=== PATIENT | female | born 1960 | race Caucasian/White ===

== ENCOUNTER 2016-06-01 16:49 | Inpatient (IN) | payer MEDICARE, OTHER ==
[2016-06-01 17:21] LABS: Basophils % (A) 1 %; CH 29.6; CHCM 33.3; Eosinophils # (A) 0.2 k/uL (0-0.7); Eosinophils % (A) 2 %; HDW 2.73; HGB 12.9 gm/dL (11.4-16.0); Luc # (Auto) 0.14; Luc % (Auto) 2; Lymphocytes # (A) 1.2 k/uL (1.0-4.8); Lymphocytes % (A) 16 %; MCH 28.8 pg (25.0-35.0); MCHC 32.2 g/dL (31.0-37.0); MCV 89.4 fL (80.0-100.0); Mean Platelet Volume 7.6; Monocytes # (A) 0.9 k/uL (0-1.0); Monocytes % (A) 13 %; Neutrophils # (A) 4.8 k/uL (1.3-7.7); Neutrophils % (A) 67 %; RBC 4.47 m/uL (3.80-5.40); RDW 14.3 % (11.5-15.5); WBC 7.3 k/uL (3.8-10.6); WBC (Perox) 6.69
--- NOTE | 2016-06-01 17:24 | ED ---
SOB HPI - General Chief Complaint: Shortness of Breath Stated Complaint: Diff breathing Time Seen by Provider: 06/01/16 17:00 Source: patient, EMS, RN notes reviewed Mode of arrival: EMS Limitations: no limitations - History of Present Illness Initial Comments: This is a 55-year-old female who was sent in from a senior care for evaluation for altered mental status and shortness of breath which she arrived she was awake alert oriented 4 but she was short of breath with cough and wheezing noted have a decreased pulse ox. Additionally she was noted to have some erythema and cellulitis of lower extremities veins of leg pain. MD Complaint: shortness of breath - Related Data Home Medications Medication Instructions Recorded Confirmed Albuterol Inhaler [Ventolin Hfa 2 puff INHALATION RT-Q4H PRN 06/01/16 06/01/16 Inhaler] Anti-Fungal Powder(Unknown) 1 applic TOPICAL DAILY PRN 06/01/16 06/01/16 Bisacodyl [Dulcolax] 10 mg RECTAL DAILY PRN 06/01/16 06/01/16 Clotrimazole/Betameth Cream 1 applic TOPICAL BID PRN 06/01/16 06/01/16 [Lotrisone] Cyclobenzaprine [Flexeril] 10 mg PO Q8H PRN 06/01/16 06/01/16 Divalproex ER [Depakote ER] 2,000 mg PO DAILY@1600 06/01/16 06/01/16 Ergocalciferol [Vitamin D2] 50,000 unit PO TH 06/01/16 06/01/16 Folic Acid 1 mg PO HS 06/01/16 06/01/16 Furosemide [Lasix] 40 mg PO BID@0800,1600 06/01/16 06/01/16 Gabapentin [Neurontin] 300 mg PO TID@0500,1300,2100 06/01/16 06/01/16 Levothyroxine Sodium [Synthroid] 137 mcg PO DAILY@0500 06/01/16 06/01/16 Losartan [Cozaar] 50 mg PO BID 06/01/16 06/01/16 Mag Hydrox/Al Hydrox/Simeth 10 ml PO QID PRN 06/01/16 06/01/16 [Maalox] Magnesium Hydroxide [Milk of 2,400 mg PO Q72H PRN 06/01/16 06/01/16 Magnesia] Multivitamins, Thera [Multivitamin] 1 tab PO HS 06/01/16 06/01/16 Mupirocin 2% Oint [Bactroban 2% 1 applic TOPICAL DAILY PRN 06/01/16 06/01/16 Oint] Polyethylene Glycol 3350 [Miralax] 17 gm PO DAILY@199906/01/16 06/01/16 Selsun Blue Shampoo 1 applic TOPICAL WESA 06/01/16 06/01/16 Sennosides [Senna] 8.6 mg PO BID PRN 06/01/16 06/01/16 Sennosides-Docusate Sodium 1 tab PO BID 06/01/16 06/01/16 [Senokot-S] Thiamine [Vitamin B-1] 100 mg PO HS 06/01/16 06/01/16 glipiZIDE [Glucotrol] 5 mg PO BID@0800,1600 06/01/16 06/01/16 metFORMIN HCL [Glucophage] 500 mg PO BID@0800,1600 06/01/16 06/01/16 oxyCODONE-APAP 5-325MG [Percocet 1 tab PO Q6HR PRN 06/01/16 06/01/16 5-325 mg] Allergies Allergy/AdvReac Type Severity Reaction Status Date / Time carbamazepine [From Tegretol] Allergy Unknown Verified 06/01/16 17:12 phenytoin [From Dilantin] Allergy Unknown Verified 06/01/16 17:12 sulfadiazine Allergy Unknown Verified 06/01/16 17:12 Review of Systems ROS Statement: Those systems with pertinent positive or pertinent negative responses have been documented in the HPI. ROS Other: All systems not noted in ROS Statement are negative. Past Medical History Past Medical History: Heart Failure, COPD, Diabetes Mellitus, Dialysis, GERD/ Reflux, Hypertension, Seizure Disorder, Thyroid Disorder Additional Past Medical History / Comment(s): Cellulitis, hypothyroid, History of Any Multi-Drug Resistant Organisms: Unobtainable Past Surgical History: Section Additional Past Surgical History / Comment(s): Brain Surgery Past Psychological History: Bipolar, Depression, Schizophrenia Smoking Status: Former smoker Past Alcohol Use History: Occasional Past Drug Use History: None Reported General Exam - General Exam Comments Initial Comments: This is a well-developed well-nourished awake alert oriented 3 female Limitations: no limitations General appearance: alert, in no apparent distress Head exam: Present: atraumatic, normocephalic, normal inspection Eye exam: Present: normal appearance, PERRL, EOMI. Absent: scleral icterus, conjunctival injection, periorbital swelling ENT exam: Present: normal exam, mucous membranes moist Neck exam: Present: normal inspection. Absent: tenderness, meningismus, lymphadenopathy Respiratory exam: Present: normal lung sounds bilaterally. Absent: respiratory distress, wheezes, rales, rhonchi, stridor Cardiovascular Exam: Present: regular rate, normal rhythm, normal heart sounds. Absent: systolic murmur, diastolic murmur, rubs, gallop, clicks GI/Abdominal exam: Present: soft, normal bowel sounds. Absent: distended, tenderness, guarding, rebound, rigid Extremities exam: Present: full ROM, tenderness, normal capillary refill, other (Edema to both lower extremities with stasis changes and some edema noted very minimal increased localized temperature.). Absent: pedal edema, joint swelling , calf tenderness Back exam: Present: normal inspection Neurological exam: Present: alert, oriented X3, CN II-XII intact Psychiatric exam: Present: normal affect, normal mood Skin exam: Present: warm, dry, intact, normal color. Absent: rash Course Vital Signs 06/01/16 06/01/16 16:52 17:02 Temperature 98.4 F Pulse Rate 82 Respiratory 22 20 Rate Blood Pressure 130/66 O2 Sat by Pulse 95 Oximetry - Reevaluation(s) Reevaluation #1: 06/01/16 18:15 I did discuss the findings with the patient she is a smoker she states she uses E cigarettes at this time. Medical Decision Making - Medical Decision Making I did discuss findings with the patient she'll be admitted she'll be placed on IV and nebulizer treatment. - Lab Data Result diagrams: 06/01/16 17:00 06/01/16 17:00 Lab Results 06/01/16 06/01/16 06/01/16 Range/Units 17:00 17:00 17:00 WBC 7.3 (3.8-10.6) k/uL RBC 4.47 (3.80-5.40) m/uL Hgb 12.9 (11.4-16.0) gm/dL Hct 40.0 (34.0-46.0) % MCV 89.4 (80.0-100.0) fL MCH 28.8 (25.0-35.0) pg MCHC 32.2 (31.0-37.0) g/dL RDW 14.3 (11.5-15.5) % Plt Count 253 (150-450) k/uL Neutrophils % 67 % Lymphocytes % 16 % Monocytes % 13 % Eosinophils % 2 % Basophils % 1 % Neutrophils # 4.8 (1.3-7.7) k/uL Lymphocytes # 1.2 (1.0-4.8) k/uL Monocytes # 0.9 (0-1.0) k/uL Eosinophils # 0.2 (0-0.7) k/uL Basophils # 0.0 (0-0.2) k/uL PT (9.0-12.0) sec INR (<1.1) APTT (22.0-30.0) sec D-Dimer (<0.60) mg/L FEU Sodium 138 (137-145) mmol/L Potassium 4.2 (3.5-5.1) mmol/L Chloride 93 L (98-107) mmol/L Carbon Dioxide 34 H (22-30) mmol/L Anion Gap 11 mmol/L BUN 16 (7-17) mg/dL Creatinine 0.74 (0.52-1.04) mg/dL Est GFR (MDRD) Af Amer >60 (>60 ml/min/1.73 sqM) Est GFR (MDRD) Non-Af >60 (>60 ml/min/1.73 sqM) Glucose 92 (74-99) mg/dL Calcium 9.4 (8.4-10.2) mg/dL Magnesium 1.9 (1.6-2.3) mg/dL Total Bilirubin 0.5 (0.2-1.3) mg/dL AST 24 (14-36) U/L ALT 29 (9-52) U/L Alkaline Phosphatase 53 (38-126) U/L Total Creatine Kinase 51 (30-135) U/L CK-MB (CK-2) 0.4 (0.0-2.4) ng/mL CK-MB (CK-2) Rel Index 0.8 Troponin I 0.019 (0.000-0.034) ng/mL NT-Pro-B Natriuret Pep pg/mL Total Protein 6.6 (6.3-8.2) g/dL Albumin 3.7 (3.5-5.0) g/dL Urine Color Urine Appearance (Clear) Urine pH (5.0-8.0) Ur Specific [place] (1.001-1.035) Urine Protein (Negative) Urine Glucose (UA) (Negative) Urine Ketones (Negative) Urine Blood (Negative) Urine Nitrate (Negative) Urine Bilirubin (Negative) Urine Urobilinogen (<2.0) mg/dL Ur Leukocyte Esterase (Negative) 06/01/16 06/01/16 06/01/16 Range/Units 17:00 17:00 17:25 WBC (3.8-10.6) k/uL RBC (3.80-5.40) m/uL Hgb (11.4-16.0) gm/dL Hct (34.0-46.0) % MCV (80.0-100.0) fL MCH (25.0-35.0) pg MCHC (31.0-37.0) g/dL RDW (11.5-15.5) % Plt Count (150-450) k/uL Neutrophils % % Lymphocytes % % Monocytes % % Eosinophils % % Basophils % % Neutrophils # (1.3-7.7) k/uL Lymphocytes # (1.0-4.8) k/uL Monocytes # (0-1.0) k/uL Eosinophils # (0-0.7) k/uL Basophils # (0-0.2) k/uL PT 10.5 (9.0-12.0) sec INR 1.0 (<1.1) APTT 25.8 (22.0-30.0) sec D-Dimer 0.55 (<0.60) mg/L FEU Sodium (137-145) mmol/L Potassium (3.5-5.1) mmol/L Chloride (98-107) mmol/L Carbon Dioxide (22-30) mmol/L Anion Gap mmol/L BUN (7-17) mg/dL Creatinine (0.52-1.04) mg/dL Est GFR (MDRD) Af Amer (>60 ml/min/1.73 sqM) Est GFR (MDRD) Non-Af (>60 ml/min/1.73 sqM) Glucose (74-99) mg/dL Calcium (8.4-10.2) mg/dL Magnesium (1.6-2.3) mg/dL Total Bilirubin (0.2-1.3) mg/dL AST (14-36) U/L ALT (9-52) U/L Alkaline Phosphatase (38-126) U/L Total Creatine Kinase (30-135) U/L CK-MB (CK-2) (0.0-2.4) ng/mL CK-MB (CK-2) Rel Index Troponin I (0.000-0.034) ng/mL NT-Pro-B Natriuret Pep 451 pg/mL Total Protein (6.3-8.2) g/dL Albumin (3.5-5.0) g/dL Urine Color Light Yellow Urine Appearance Clear (Clear) Urine pH 7.5 (5.0-8.0) Ur Specific [place] 1.006 (1.001-1.035) Urine Protein Negative (Negative) Urine Glucose (UA) Negative (Negative) Urine Ketones Negative (Negative) Urine Blood Negative (Negative) Urine Nitrate Negative (Negative) Urine Bilirubin Negative (Negative) Urine Urobilinogen <2.0 (<2.0) mg/dL Ur Leukocyte Esterase Negative (Negative) - EKG Data -: EKG Interpreted by Ct EKG shows normal: sinus rhythm (Sinus rhythm rate of 81. Interval 136 QRS duration 80 daily since QTC of 342/397 nonspecific T-wave configuration artifact is present.) - Radiology Data Radiology results: report reviewed (Did review the x-rays and reports patient demonstrates bilateral pneumonia.), image reviewed Disposition Clinical Impression: Pneumonia, Acute exacerbation of chronic obstructive airways disease Disposition: ADMITTED IP TO THIS HOSP Condition: Stable
[2016-06-01 17:34] LABS: ALT 29 U/L (9-52); AST 24 U/L (14-36); Alkaline Phosphatase 53 U/L (38-126); Anion Gap 11 mmol/L; Blood Urea Nitrogen 16 mg/dL (7-17); Calcium 9.4 mg/dL (8.4-10.2); Carbon Dioxide 34 mmol/L (22-30); Chloride 93 mmol/L (98-107); Glucose 92 mg/dL (74-99); Magnesium 1.9 mg/dL (1.6-2.3); Non-African American GFR(MDRD) >60 (>60 ml/min/1.73 sqM); Potassium 4.2 mmol/L (3.5-5.1); Sodium 138 mmol/L (137-145); Total Bilirubin 0.5 mg/dL (0.2-1.3); Total Protein 6.6 g/dL (6.3-8.2)
[2016-06-01 17:36] LABS: Appearance,Urine Clear (Clear); Bilirubin,Urine Negative (Negative); Glucose,Urine (UA) Negative (Negative); Ketones,Urine Negative (Negative); Leukocyte Esterase,Urine Negative (Negative); Nitrite,Urine Negative (Negative); PH, Urine 7.5 (5.0-8.0); Protein,Urine Negative (Negative); Specific Gravity,Urine 1.006 (1.001-1.035); UA Billing (MACRO vs. MICRO) CHEM; Urobilinogen,Urine <2.0 mg/dL (<2.0)
[2016-06-01 17:36] LABS: Partial Thromboplastin Time 25.8 sec (22.0-30.0); Prothrombin Time 10.5 sec (9.0-12.0)
--- NOTE | 2016-06-01 17:45 | XR ---
EXAMINATION TYPE: XR chest 2V DATE OF EXAM: 06/01/2016 5:38 PM COMPARISON: 05/05/2012 HISTORY: Short of breath TECHNIQUE: Frontal and lateral views of the chest are obtained. FINDINGS: Heart and mediastinum are within normal limits. On the lateral view there is evidence of i nfiltrate at both posterior lung bases. There is no heart failure. There are chest leads. There are n o hilar masses. IMPRESSION: There is evidence of bilateral posterior basilar pneumonia that is new compared to old e xam. Normal heart. No gross heart failure.
[2016-06-01 17:56] LABS: Creatine Kinase MB 0.4 ng/mL (0.0-2.4); Troponin I 0.019 ng/mL (0.000-0.034)
[2016-06-01] MEDS ORDERED: AZITHROMYCIN 500 MG in SODIUM CHLORIDE 0.9% 250 ML IVPB STA (18:16)
[2016-06-01] MEDS ORDERED: PNEUMONIA PROTOCOL UTILIZED 1 EACH MISC PO PRN (18:16)
[2016-06-01] MEDS ORDERED: SENNOSIDES 8.6 MG TAB PO PRN (18:18)
[2016-06-01] MEDS ORDERED: CYCLOBENZAPRINE 10 MG TAB PO PRN (18:18)
[2016-06-01] MEDS ORDERED: MUPIROCIN 2% OINT 22 GM TUBE TOPICAL PRN (18:18)
[2016-06-01] MEDS ORDERED: oxyCODONE-APAP 5-325MG 1 EACH TAB PO PRN (18:18)
[2016-06-01] MEDS ORDERED: CLOTRIMAZOLE/BETAMETH 1-0.05% CREAM 45 GM TUBE TOPICAL PRN (18:18)
[2016-06-01] MEDS ORDERED: SODIUM CHLORIDE 0.9% 1,000 ML IV SCH (18:30)
[2016-06-01] MEDS ORDERED: IPRATROPIUM-ALBUTEROL 3 ML NEB INHALATION SCH (20:00)
[2016-06-01 20:17] LABS: Glucose,Whole Blood 114 mg/dL (75-99)
[2016-06-01] MEDS ORDERED: IPRATROPIUM-ALBUTEROL 3 ML NEB INHALATION PRN (20:24)
[2016-06-01 20:25] LABS: Hemoglobin A1C 5.9 % (4.2-6.1)
[2016-06-01] MEDS ORDERED: MULTIVITAMINS, THERA 1 EACH TAB PO SCH (21:00)
[2016-06-01] MEDS ORDERED: THIAMINE 100 MG TAB PO SCH (21:00)
[2016-06-01] MEDS ORDERED: FOLIC ACID 1 MG TAB PO SCH (21:00)
[2016-06-01] MEDS: GABAPENTIN 300 MG CAP PO SCH (22:23)
[2016-06-01] MEDS: LOSARTAN 50 MG TAB PO SCH (22:28)
[2016-06-01] MEDS: INSULIN LISPRO (humaLOG) 300 UNIT/3 ML VIAL SQ SCH (22:28)
[2016-06-01] MEDS: SENNOSIDES-DOCUSATE SODIUM 1 EACH TAB PO SCH (22:29)
[2016-06-02] MEDS: methylPREDNISolone SOD SUCCI 125 MG/2 ML VIAL IV SCH ×3 (00:14→12:39)
[2016-06-02 03:49] VITALS: RESP 16
[2016-06-02] MEDS ORDERED: LEVOTHYROXINE 137 MCG TAB PO SCH (05:00)
[2016-06-02] MEDS: GABAPENTIN 300 MG CAP PO SCH (06:32)
[2016-06-02 06:36] LABS: Glucose,Whole Blood 158 mg/dL (75-99)
[2016-06-02 07:15] VITALS: BP 177/93; PULSE 84; TEMP 97.1
--- NOTE | 2016-06-02 07:41 | XR ---
EXAMINATION TYPE: XR chest 2V DATE OF EXAM: 06/02/2016 7:08 AM COMPARISON: 06/01/2016 INDICATION: Pneumonia TECHNIQUE: Frontal and lateral views of the chest are obtained. FINDINGS: The heart size is normal. The pulmonary vasculature is normal. The lungs are clear. Chin overlies the right apex IMPRESSION: 1. No acute pulmonary process.
[2016-06-02] MEDS ORDERED: glipiZIDE 5 MG TAB PO SCH (08:00)
[2016-06-02] MEDS ORDERED: metFORMIN 500 MG TAB PO SCH (08:00)
[2016-06-02] MEDS ORDERED: FUROSEMIDE 40 MG TAB PO SCH (08:00)
[2016-06-02] MEDS: LOSARTAN 50 MG TAB PO SCH (08:11)
[2016-06-02] MEDS: INSULIN LISPRO (humaLOG) 300 UNIT/3 ML VIAL SQ SCH ×2 (08:11→12:36)
[2016-06-02] MEDS: SENNOSIDES-DOCUSATE SODIUM 1 EACH TAB PO SCH (08:19)
[2016-06-02] MEDS ORDERED: AZITHROMYCIN 500 MG TAB PO SCH (09:00)
[2016-06-02] MEDS: IPRATROPIUM-ALBUTEROL 3 ML NEB INHALATION SCH ×2 (09:17→12:43)
--- NOTE | 2016-06-02 11:00 | HP ---
DATE OF ADMISSION: HISTORY AND PHYSICAL AND DISCHARGE SUMMARY Patient is a 55-year-old female who came in from custodial with complaints of altered mental status and shortness of breath. History is not very clear because of her mental status issues. Patient states she is smoking E cigarettes. Patient appears to have smoked in the past. Patient was admitted for pneumonia. Patient was complaining of cough with yellowish sputum production. Denied any fever, chills, body aches. The patient did not have any fever here. Did not have any leukocytosis. There is no chest x-ray evidence of pneumonia. Patient is morbidly obese because of which chest x-ray does look hazy. No orthopnea or PND and the patient does have wheezing on exam. Patient may have minimal wheezing on exam, although patient is saturating well upon ambulation around 90s, upon ambulation without oxygen. Patient does have minimal wheeze, which she should be okay with oral steroids. Patient may have asthma, COPD exacerbation. 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 I was told patient has altered mental status, although patient is alert and oriented x2 and as per the ER physician dictation, patient did not appear to be have any altered mental status. Anyways, patient's mental status is at her baseline. No signs or symptoms of sepsis. Urinalysis is negative. REVIEW OF SYSTEMS: CONSTITUTIONAL: No fever, no malaise, no fatigue. HEENT: No recent visual problems or hearing problems. Denied any sore throat. CARDIOVASCULAR: No chest pain, orthopnea, PND, no palpitations, no syncope. PULMONARY: As described in HPI. GASTROINTESTINAL: No diarrhea, no nausea, no vomiting, no abdominal pain. Normoactive bowel sounds. NEUROLOGICAL: As described in HPI. HEMATOLOGICAL: Denies any bleeding or petechiae. GENITOURINARY: Denies any burning micturition, frequency, or urgency. MUSCULOSKELETAL/RHEUMATOLOGICAL: Denies any joint pain, swelling, or any muscle pain. ENDOCRINE: Denies any polyuria or polydipsia. The rest of the 14 point review of systems is negative. Home medications include: 1. Albuterol. 2. Bisacodyl. 3. Clotrimazole beclomethasone. 4. Cyclobenzaprine. 5. Depakote. 6. Ergocalciferol. 7. Lasix. 8. Gabapentin. 9. Levothyroxine. 10. Losartan. 11. Magnesium oxide. 12. Multivitamin. 13. Polyethylene glycol. 14. Senna. 15. Thiamine. 16. Glipizide. 17. Metformin. 18. Oxycodone. ALLERGIES: Allergic to CARBAMAZEPINE, PHENYTOIN and SULFADIAZINE. PAST MEDICAL HISTORY: Heart failure as per documentation and patient is definitely on heart failure. medications including losartan and Lasix, but I do not know the ejection fraction. Patient is not in any heart failure exacerbation at this point of time. COPD, diabetes mellitus, gastroesophageal reflux disease, hypertension, seizure disorder, hypothyroidism. Patient had a section in the past. PSYCHOLOGICAL HISTORY: Bipolar disorder, depression, schizophrenia. SOCIAL HISTORY: Former smoker, presently smokes E cigarettes. Denied any alcohol abuse or any drug abuse. FAMILY HISTORY: Unable to obtain at this point of time. Patient has baseline mental status abnormalities since a traumatic brain injury in the past. PHYSICAL EXAMINATION: GENERAL: Morbidly obese, alert and oriented x2. HEENT: Pupils are round and equally reacting to light. EOMI. No scleral icterus. No conjunctival pallor. Normocephalic, atraumatic. No pharyngeal erythema. No thyromegaly. CARDIOVASCULAR: S1 and S2 present. No JVD. No S3. LUNG EXAMINATION: Minimal expiratory wheezing was appreciated. Fairly good air entry into bilateral lung bhatt. No crackles were appreciated. ABDOMEN: Soft, nontender, nondistended, normoactive bowel sounds. No palpable organomegaly. MUSCULOSKELETAL: No joint swelling or deformity. EXTREMITIES: No cyanosis, clubbing, or pedal edema. NEUROLOGICAL: Gross neurological examination did not reveal any focal deficits. SKIN: No rashes. LABORATORY DATA: CBC, CMP essentially within normal limits. Chest x-ray findings as mentioned above. ASSESSMENT AND PLAN: 1. Acute hypercapnic respiratory failure secondary to possible chronic obstructive pulmonary disease exacerbation. Patient is clinically doing well and will be discharged with weaning dose of steroids and azithromycin for bronchitis. 2. Congestive heart failure. I do not know the ejection fraction. Patient is euvolemic at this point of time, not in acute exacerbation. 3. Diabetes mellitus type 2. 4. Gastroesophageal reflux disease. 5. Hypertension. 6. Seizure disorder. 7. Hypothyroidism. For above mentioned chronic medical problems, she can continue her home medications. Patient will be given prescription for azithromycin, budesonide formoterol, Tiotropium and prednisone. Patient will follow up with Dr. Naveen Russo in the rehab facility. Activity as tolerated. Cardiac and diabetic 1800 calorie diet.
[2016-06-02 11:16] VITALS: BMI 46.2
[2016-06-02 12:12] LABS: Glucose,Whole Blood 250 mg/dL (75-99)
[2016-06-02] MEDS ORDERED: DIVALPROEX ER 500 MG TAB.ER.24H PO SCH (16:00)
== END 2016-06-02 14:00 | DRG 190 ==
LOC: EEVIPCON 16:49 → EC 16:49 → 5MS5E 18:16
PROVIDERS: ADMIT Internal Medicine; ATTEND Internal Medicine
DX: J44.1 Chronic obstructive pulmonary disease with (acute) exacerbation (principal); J96.02 Acute respiratory failure with hypercapnia; L03.115 Cellulitis of right lower limb; Z68.42 Body mass index [BMI] 45.0-49.9, adult; I11.0 Hypertensive heart disease with heart failure; I50.9 Heart failure, unspecified; L03.116 Cellulitis of left lower limb; E66.01 Morbid (severe) obesity due to excess calories; E11.9 Type 2 diabetes mellitus without complications; E03.9 Hypothyroidism, unspecified; K21.9 Gastro-esophageal reflux disease without esophagitis; G40.909 Epilepsy, unspecified, not intractable, without status epilepticus; F31.9 Bipolar disorder, unspecified; F20.9 Schizophrenia, unspecified; F17.200 Nicotine dependence, unspecified, uncomplicated; Z79.84 Long term (current) use of oral hypoglycemic drugs; Z79.899 Other long term (current) drug therapy
CPT/HCPCS: 36415; 71020; 80053; 81003; 82550; 82553; 83036; 83735; 83880; 84484; 85025; 85379; 85610; 85730; 87040; 93005; 94640; 96365; 99285

== ENCOUNTER → 2017-10-04 | Outpatient (CLI) | payer MEDICARE, OTHER ==
--- NOTE | 2017-10-05 10:32 | CT ---
EXAMINATION TYPE: CT abdomen pelvis w con DATE OF EXAM: 10/04/2017 COMPARISON: NONE HISTORY: Left side abdominal pain CT DLP: 4449.1 mGycm. Automated exposure control for dose reduction was used. TECHNIQUE: Helical acquisition of images was performed from the lung bases through the pelvis. CONTRAST: Performed with Oral Contrast and with IV Contrast, patient injected with 100 mL of Isovue 3 00. FINDINGS: LUNG BASES: No significant abnormality is appreciated. LIVER/GB: No significant abnormality is appreciated. PANCREAS: No significant abnormality is seen. SPLEEN: No significant abnormality is seen. ADRENALS: No significant abnormality is seen. KIDNEYS: No significant abnormality is seen. FREE AIR: No free air is visualized. RETROPERITONEAL ADENOPATHY: None visualized REPRODUCTIVE ORGANS: No significant abnormality is seen URINARY BLADDER: No significant abnormality is seen. PELVIC ADENOPATHY: None visualized. OSSEOUS STRUCTURES: No significant abnormality is seen. BOWEL: Overall impression is no acute process. In the left upper quadrant the jejunal mesentery is mi ldly looping upon itself, but without sonia twisting at this time. This is a nonspecific finding and is also seen with asymptomatic patients. It is notable that the jejunal mesentery is not edematous, t he bowel loops are not dilated, and there is no mural thickening. Remainder of the small and large jamie wel, and the stomach and duodenum, are unremarkable. VASCULATURE: Unremarkable. IMPRESSION: 1. NO ACUTE CT PROCESS. 2. Jejunal mesenteric findings are nonspecific at this time.
== END | disposition home or self-care (01) ==
LOC: RADCTMAIN 08:16
PROVIDERS: ATTEND Family Medicine
DX: R10.84 Generalized abdominal pain (principal)
CPT/HCPCS: 74177; Q9967

== ENCOUNTER 2018-03-20 02:05 | Emergency (ER) | payer MEDICARE, OTHER ==
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
[2018-03-20 02:22] VITALS: TEMP 98.4
[2018-03-20] MEDS ORDERED: SODIUM CHLORIDE 0.9% 1,000 ML IV ONE (02:36)
--- NOTE | 2018-03-20 03:44 | CT ---
EXAMINATION TYPE: CT brain wo con DATE OF EXAM: 03/20/2018 COMPARISON: 10/19/2011 HISTORY: AMS CT DLP: 1075.40 mGycm Automated exposure control for dose reduction was used. FINDINGS: There is cerebral cortical atrophy. There is symmetrical extensive hypodensity involving the temporal lobes. There is no midline shift. There is no sign of intracranial hemorrhage. There is old right te mporal craniotomy defect. IMPRESSION: EXTENSIVE SYMMETRIC TEMPORAL LOBE ENCEPHALOMALACIA UNCHANGED COMPARED TO OLD EXAM. NO ACUTE INTRACRAN IAL ABNORMALITY.
--- NOTE | 2018-03-20 03:45 | XR ---
EXAMINATION TYPE: XR chest 2V DATE OF EXAM: 03/20/2018 COMPARISON: 06/02/2016 HISTORY: Pneumonia TECHNIQUE: Frontal and lateral views of the chest are obtained. FINDINGS: Heart and mediastinum are normal. Lungs are clear. Diaphragm is normal. Bony thorax is int act. There are chest leads. Pulmonary vascularity is normal. IMPRESSION: Normal chest.
[2018-03-20 05:55] LABS: Basophils % (A) 1 %; Eosinophils # (A) 0.4 k/uL (0-0.7); Eosinophils % (A) 4 %; HCT 37.9 % (34.0-46.0); HGB 12.2 gm/dL (11.4-16.0); Lymphocytes # (A) 2.5 k/uL (1.0-4.8); Lymphocytes % (A) 31 %; MCH 29.4 pg (25.0-35.0); MCHC 32.2 g/dL (31.0-37.0); MCV 91.2 fL (80.0-100.0); Mean Platelet Volume 8.3; Monocytes # (A) 0.7 k/uL (0-1.0); Monocytes % (A) 8 %; Neutrophils # (A) 4.5 k/uL (1.3-7.7); Neutrophils % (A) 54 %; Platelet Count 170 k/uL (150-450); RBC 4.15 m/uL (3.80-5.40); WBC 8.3 k/uL (3.8-10.6)
[2018-03-20 06:14] LABS: Prothrombin Time 9.6 sec (9.0-12.0)
[2018-03-20 06:17] LABS: Albumin 3.5 g/dL (3.5-5.0); Calcium 9.3 mg/dL (8.4-10.2); Total Bilirubin 0.3 mg/dL (0.2-1.3); Total Protein 6.1 g/dL (6.3-8.2)
[2018-03-20 06:22] LABS: Potassium 4.3 mmol/L (3.5-5.1); Valproic Acid (Depakene) 114.6 ug/mL
[2018-03-20 06:26] VITALS: PULSE 75; RESP 19
[2018-03-20 06:27] LABS: Creatine Kinase 29 U/L (30-135)
[2018-03-20 06:39] LABS: Creatine Kinase MB <0.2 ng/mL (0.0-2.4); Troponin I 0.019 ng/mL (0.000-0.034)
[2018-03-20 07:08] LABS: Partial Thromboplastin Time 19.2 sec (22.0-30.0)
[2018-03-20 07:08] LABS: Appearance,Urine Clear (Clear); Bilirubin,Urine Negative (Negative); Blood,Urine Negative (Negative); Color,Urine Yellow; Glucose,Urine (UA) Negative (Negative); Ketones,Urine Negative (Negative); Leukocyte Esterase,Urine Negative (Negative); Nitrite,Urine Negative (Negative); Protein,Urine Negative (Negative); Specific Gravity,Urine 1.009 (1.001-1.035); Urobilinogen,Urine <2.0 mg/dL (<2.0)
[2018-03-20 07:12] VITALS: BP 147/80
[2018-03-20 07:23] LABS: Amphetamine Screen,Urine Not Detected (NotDetected); Barbiturate Screen,Urine Not Detected (NotDetected); Benzodiazepines Screen,Urine Not Detected (NotDetected); Cocaine Screen,Urine Not Detected (NotDetected); Methadone Screen, Urine Not Detected (NotDetected); Opiate Screen,Urine Not Detected (NotDetected); Oxycodone Screen, Urine Detected (NotDetected); Phencyclidine Screen,Urine Not Detected (NotDetected); Tricyclic Antidepressant,Urine Detected (NotDetected); Urn Cannabinoid Scrn Not Detected (NotDetected)
== END 2018-03-20 07:45 | disposition home or self-care (01) ==
LOC: EC 02:05
DX: R53.83 Other fatigue (principal); R41.82 Altered mental status, unspecified; I11.0 Hypertensive heart disease with heart failure; I50.9 Heart failure, unspecified; J44.9 Chronic obstructive pulmonary disease, unspecified; E03.9 Hypothyroidism, unspecified; G40.909 Epilepsy, unspecified, not intractable, without status epilepticus; K21.9 Gastro-esophageal reflux disease without esophagitis; E11.9 Type 2 diabetes mellitus without complications; F31.9 Bipolar disorder, unspecified; F20.9 Schizophrenia, unspecified; F17.200 Nicotine dependence, unspecified, uncomplicated; Z79.84 Long term (current) use of oral hypoglycemic drugs; Z79.891 Long term (current) use of opiate analgesic; Z79.51 Long term (current) use of inhaled steroids; Z79.899 Other long term (current) drug therapy; Z88.8 Allergy status to other drugs, medicaments and biological substances; Z99.2 Dependence on renal dialysis
CPT/HCPCS: 36415; 70450; 71046; 80053; 80164; 80306; 81003; 82140; 82550; 82553; 84484; 85025; 85610; 85730; 87040; 93005; 96360; 96361; 99285